=== PATIENT | male | born 1965 | race Caucasian/White ===

== ENCOUNTER → 2016-10-14 | Outpatient (CLI) | payer OTHER ==
[~2016-10-14] MED LIST: ACETAMINOPHEN325 MG PO; ACETAMINOPHEN650 M1 PO; ALBUTEROL17 GM INH; GABAPENTIN300 MG PO; HYDROCHLOROTHIA25 MG PO; LEVOTHYROXINE100 MCG PO; PRILOSEC PO; PRILOSEC20 M1 PO
--- NOTE | ~2016-10-14 | NM23 ---
[facility] A Service of [facility] & [facility] RADIOLOGY TEXT RESULTS PATIENT: LORI GHOTRA LOCATION: [facility] : 63 UNIT #: [id number] AGE: [address]: Tylor Graham MD SEX: M ORDER DR: [id number] [facility] [address] [place], [place] [address] [id number] O MR#: [id number] Acc #: [id number] NAME: LORI GHOTRA : 1965 SEX: M STUDY DATE/TIME: 10/14/2016 8:24 UNIT: [facility] ROOM: STUDY DESCRIPTION: NM I-131 Total Body Scan Attending Physician: Tylor Graham M.D. Referring Physician: Tylor Graham M.D. Ordering Physician: Tylor Graham M.D. Primary Care Physician: Britt Mercado A.P.R.N. MEDICAL IMAGING REPORT This report is preliminary unless electronic signature is present EXAM Iodine-131 whole body scan. HISTORY Thyroid cancer evaluation for metastatic disease. Patient stopped Synthroid before this exam. FINDINGS Patient was given 5.02 mCi of Iodine-131 and 48 hours later anterior and posterior whole-body images were obtained down to the thighs. There are also lateral views of the neck. There is normal uptake in the salivary tissue and bowel and bladder. There is no evidence of metastatic disease or recurrent disease. IMPRESSION The study does not show any evidence of recurrent thyroid tissue with cancer or metastatic disease. Dictated by... Flex Nick M.D. THIS IS AN ELECTRONICALLY VERIFIED REPORT Flex Nick M.D. at 10/17/2016 11:21 AM ANSELMO/shayan TD: 10/17/2016 09:54 JOB #: [id number] MEDICAL IMAGING REPORT Page 1 of 1 COPY
== END | disposition home or self-care (01) ==
LOC: CNUC 06:34
DX: E89.0 Postprocedural hypothyroidism (principal)
CPT/HCPCS: 78018; A9508